=== PATIENT | female | born 2000 | race Caucasian/White ===

== ENCOUNTER 2023-03-01 21:29 | Emergency (ER) | payer BC ==
--- NOTE | 2023-03-01 21:35 | ERPHSYRPT ---
- History of Present Illness Time Seen by Provider: 03/01/23 21:35 Source: patient Exam Limitations: no limitations Physician History: C/o sore throat x 5 days. Endorses rhinorrhea, nasal congestion and cough, productive/dry. + fever. No N/V, not tolerating diet. + hoarse voice Timing/Duration: day(s) (5) Cough Quality/Degree: moderate, dry cough Possible Cause: occasional episodes Modifying Factors: Improves With: nothing. Worsens With: coughing Associated Symptoms: fever, chills, cough, nasal congestion, nasal drainage, No chest pain/soreness, No shortness of breath Allergies/Adverse Reactions: No Known Drug Allergies Allergy (Unverified 03/01/23 21:35) - Review of Systems Constitutional: Fever, Chills Eyes: No Symptoms Ears, Nose, & Throat: Nose Congestion, Nose Discharge, Throat Pain, Throat Swelling, Hoarse, Painful Swallowing, No Ear Pain Respiratory: Cough, No Dyspnea, No Dyspnea on Exertion (FARIAS), No Wheezing Cardiac: No Symptoms Abdominal/Gastrointestinal: Appetite Changes, No Abdominal Pain, No Nausea, No Vomiting, No Diarrhea Genitourinary Symptoms: No Symptoms Musculoskeletal: No Symptoms Skin: No Symptoms Neurological: No Symptoms Psychological: No Symptoms Endocrine: No Symptoms Hematologic/Lymphatic: No Symptoms Immunological/Allergic: No Symptoms All Other Systems: Reviewed and Negative - Nursing Vital Signs Nursing Vital Signs: Initial Vital Signs Temperature 99.5 F 03/01/23 21:36 Pulse Rate 119 H 03/01/23 21:36 Respiratory Rate 20 03/01/23 21:36 Blood Pressure 145/79 03/01/23 21:36 O2 Sat by Pulse Oximetry 100 03/01/23 21:36 Pain Scale Pain Intensity 7 - Physical Exam General Appearance: mild distress Eye Exam: eyes nml inspection Ears, Nose, Throat Exam: TMs normal, dry mucous membranes, pharyngeal erythema, other (right tonsil enlarged pusing on uvula causing leftward deviation), No tonsillar exudate Neck Exam: normal inspection, full range of motion, lymphadenopathy (right submandibular) Respiratory Exam: normal breath sounds, lungs clear, airway intact, No respiratory distress Cardiovascular Exam: normal heart sounds, tachycardia, capillary refill <2 sec, No edema Gastrointestinal/Abdomen Exam: soft, normal bowel sounds, No tenderness Extremity Exam: normal inspection, No swelling, No tenderness Neurologic Exam: alert, oriented x 3, cooperative Skin Exam: normal color, warm, dry SpO2 Interpretation: normal O2 Delivery: Room Air - Course Nursing assessment & vital signs reviewed: Yes - CT Exams Soft Tissue Neck CT Interpretation: Tele-radiologist Report, Other (right tonsilitis no kodak abscess) Ordered Tests: Active Orders 24 hr Category Date Time Status IV Insertion STAT Care 03/01/23 21:47 Completed IV Insertion STAT Care 03/01/23 21:52 Completed Pulse Oximetry (ED) STAT Care 03/01/23 21:52 Completed NECK WITH CONTRAST [CT] Stat Exams 03/01/23 21:48 Completed BLOOD CULTURE Stat Lab 03/01/23 22:15 Received CBC W DIFF Stat Lab 03/01/23 22:10 Completed CMP Stat Lab 03/01/23 22:10 Completed ESR [Erythrocyte Sedimentation Rate] Stat Lab 03/01/23 22:10 Completed Lactic Acid Stat Lab 03/01/23 22:05 Completed MONO SCREEN Stat Lab 03/01/23 22:10 Completed Medication Summary Discontinued Medications Generic Name Dose Route Start Last Admin Trade Name Alfonzo PRN Reason Stop Dose Admin Acetaminophen 975 mg 03/01/23 21:47 03/01/23 21:55 Acetaminophen 325 Mg Tablet PO 03/01/23 21:48 975 mg STAT ONE Administration Acetaminophen Confirm 03/01/23 21:53 Acetaminophen 325 Mg Tablet Administered 03/01/23 21:54 Dose 975 mg .ROUTE .STK-MED ONE Ampicillin Sodium/Sulbactam Sodium Confirm 03/01/23 23:28 Ampicillin /Sulbactam 3 G/Vial Administered 03/01/23 23:29 Dose 3 g .ROUTE .STK-MED ONE Dexamethasone Sodium Phosphate 8 mg 03/01/23 23:26 03/01/23 23:35 Dexamethasone Sod Phosphate 4 Mg/Ml Ml IV 03/01/23 23:27 8 mg STAT ONE Administration Dexamethasone Sodium Phosphate Confirm 03/01/23 23:28 Dexamethasone Sod Phosphate 4 Mg/Ml Ml Administered 03/01/23 23:29 Dose 8 mg .ROUTE .STK-MED ONE Sodium Chloride 1,000 mls @ 999 mls/hr 03/01/23 21:47 03/01/23 23:47 Sodium Chloride 0.9% 1000 Ml IV 03/01/23 22:47 Infused .Q1H1M STA Infusion Sodium Chloride Confirm 03/01/23 21:53 Sodium Chloride 0.9% 1000 Ml Administered 03/01/23 21:54 Dose 1,000 mls @ ud .ROUTE .[facility] ONE Ampicillin Sodium/Sulbactam 100 mls @ 300 mls/hr 03/01/23 23:23 03/01/23 23:35 Sodium 3 g/ Sodium Chloride IV 03/01/23 23:42 300 mls/hr STAT ONE Administration Sodium Chloride Confirm 03/01/23 23:29 Sodium Chloride 0.9% Administered 03/01/23 23:30 Dose 100 mls @ ud .ROUTE .[facility] ONE Lab/Rad Data: Laboratory Result Diagrams 03/01/23 22:10 03/01/23 22:10 Laboratory Results 03/01/23 03/01/23 03/01/23 Range/Units 22:10 22:10 22:10 WBC (4.0-10.5) x10^3/uL RBC (4.1-5.4) x10^6/uL Hgb (12.0-16.0) g/dL Hct (35-47) % MCV (78-100) fL MCH (26-32) pg MCHC (32-36) g/dL RDW (11.5-14.0) % Plt Count (150-450) x10^3/uL MPV (7.5-11.0) fL Gran % (36.0-66.0) % Immature Gran % (Auto) (0.00-0.4) % Nucleat RBC Rel Count (0.00-0.1) % Eos # (Auto) (0-0.5) x10^3/uL Immature Gran # (Auto) (0.00-0.03) x10^3u/L Absolute Lymphs (auto) (1.0-4.6) x10^3/uL Absolute Monos (auto) (0.0-1.3) x10^3/uL Absolute Nucleated RBC (0.00-0.01) x10^3u/L Lymphocytes % (24.0-44.0) % Monocytes % (0.0-12.0) % Eosinophils % (0.00-5.0) % Basophils % (0.0-0.4) % Absolute Granulocytes (1.4-6.9) x10^3/uL Basophils # (0-0.4) x10^3/uL ESR 45 H (0-20) mm/hr Sodium 137 (137-145) mmol/L Potassium 4.4 (3.5-5.1) mmol/L Chloride 100 (98-107) mmol/L Carbon Dioxide 30 (22-30) mmol/L Anion Gap 11.7 (5-15) MEQ/L BUN 4 L (7-17) mg/dL Creatinine 0.63 (0.52-1.04) mg/dL Estimated GFR > 60.0 ML/MIN Glucose 97 (74-106) mg/dL Lactic Acid (0.4-2.0) Calcium 9.1 (8.4-10.2) mg/dL Total Bilirubin 0.60 (0.2-1.3) mg/dL AST 20 (14-36) U/L ALT 18 (0-35) U/L Alkaline Phosphatase 99 (38-126) U/L Serum Total Protein 7.7 (6.3-8.2) g/dL Albumin 4.0 (3.5-5.0) g/dL Monoscreen NEGATIVE (NEGATIVE) Influenza Type A Ag (NEGATIVE) Influenza Type B Ag (NEGATIVE) RSV (PCR) (NEGATIVE) SARS-CoV-2 (PCR) (NEGATIVE) Group A Strep Antibody (NEGATIVE) 03/01/23 03/01/23 03/01/23 Range/Units 22:10 22:10 22:05 WBC 18.3 H (4.0-10.5) x10^3/uL RBC 4.14 (4.1-5.4) x10^6/uL Hgb 12.5 (12.0-16.0) g/dL Hct 38.0 (35-47) % MCV 91.8 (78-100) fL MCH 30.2 (26-32) pg MCHC 32.9 (32-36) g/dL RDW 11.4 L (11.5-14.0) % Plt Count 315 (150-450) x10^3/uL MPV 9.7 (7.5-11.0) fL Gran % 71.0 H (36.0-66.0) % Immature Gran % (Auto) 0.7 H (0.00-0.4) % Nucleat RBC Rel Count 0.0 (0.00-0.1) % Eos # (Auto) 0.02 (0-0.5) x10^3/uL Immature Gran # (Auto) 0.12 H (0.00-0.03) x10^3u/L Absolute Lymphs (auto) 3.03 (1.0-4.6) x10^3/uL Absolute Monos (auto) 2.07 H (0.0-1.3) x10^3/uL Absolute Nucleated RBC 0.00 (0.00-0.01) x10^3u/L Lymphocytes % 16.5 L (24.0-44.0) % Monocytes % 11.3 (0.0-12.0) % Eosinophils % 0.1 (0.00-5.0) % Basophils % 0.4 (0.0-0.4) % Absolute Granulocytes 13.01 H (1.4-6.9) x10^3/uL Basophils # 0.07 (0-0.4) x10^3/uL ESR (0-20) mm/hr Sodium (137-145) mmol/L Potassium (3.5-5.1) mmol/L Chloride (98-107) mmol/L Carbon Dioxide (22-30) mmol/L Anion Gap (5-15) MEQ/L BUN (7-17) mg/dL Creatinine (0.52-1.04) mg/dL Estimated GFR ML/MIN Glucose (74-106) mg/dL Lactic Acid 1.1 (0.4-2.0) Calcium (8.4-10.2) mg/dL Total Bilirubin (0.2-1.3) mg/dL AST (14-36) U/L ALT (0-35) U/L Alkaline Phosphatase (38-126) U/L Serum Total Protein (6.3-8.2) g/dL Albumin (3.5-5.0) g/dL Monoscreen (NEGATIVE) Influenza Type A Ag NEGATIVE (NEGATIVE) Influenza Type B Ag NEGATIVE (NEGATIVE) RSV (PCR) NEGATIVE (NEGATIVE) SARS-CoV-2 (PCR) NEGATIVE (NEGATIVE) Group A Strep Antibody NOT DETECTED (NEGATIVE) - Progress Progress: unchanged Air Movement: good Progress Note: 03/01/23 23:40 WBC 18, strep, mono, flu, rsv, covid neg Patient given Unasyn and Decadron due to concern for peritonsillar abscess. CT showed right sided tonsilitis w/ reactive LAD, no kodak abscess. Blood Culture(s) Obtained: Yes Antibiotics given: Yes Counseled pt/family regarding: lab results, diagnosis, need for follow-up, rad results Medical Desision Making - Diagnostic Testing Diagnostic test were ordered, analyzed, and reviewed by me: Yes Radiological Interpretation: Reviewed by me, Teleradiologist Report - Risk of complications The pt has a mod risk of morbidity or mortality based on: Need for prescription drug management - Departure Departure Disposition: Home Clinical Impression: Acute erythematous tonsillitis Condition: Stable Critical Care Time: No Referrals: MELI CHESTER [Primary Care Provider] - Follow up/PCP as directed Instructions: Viral Pharyngitis (DC) Prescriptions: predniSONE [Prednisone] 50 mg PO DAILY 4 Days #4 tablet
[2023-03-01] MEDS ORDERED: TYLENOL 325 MG PO ONE (21:47)
[2023-03-01] MEDS ORDERED: Sodium Chloride 0.9% 1000 ML 1,000 ML IV STA (21:47)
[2023-03-01] MEDS ORDERED: Sodium Chloride 0.9% 1000 ML 1,000 ML ONE (21:53)
[2023-03-01] MEDS ORDERED: TYLENOL 325 MG ONE (21:53)
[2023-03-01 22:20] LABS: Absolute Neutrophil Ct (ANC) 13.01 x10^3/uL (1.4-6.9); BASOPHIL % 0.4 % (0.0-0.4); Basophil (Absolute #) 0.07 x10^3/uL (0-0.4); Eosinophil % 0.1 % (0.00-5.0); Eosinophil (Absolute #) 0.02 x10^3/uL (0-0.5); Hemoglobin 12.5 g/dL (12.0-16.0); IMMATURE GRAN # 0.12 x10^3u/L (0.00-0.03); IMMATURE GRAN % 0.7 % (0.00-0.4); Lymphocyte (Absolute #) 3.03 x10^3/uL (1.0-4.6); Lymphocytes % 16.5 % (24.0-44.0); Mean Cell Volume 91.8 fL (78-100); Mean Corpuscular Hemoglobin 30.2 pg (26-32); Mean Corpuscular Hgb Concent. 32.9 g/dL (32-36); Mean Platelet Volume 9.7 fL (7.5-11.0); Monocyte (Absolute #) 2.07 x10^3/uL (0.0-1.3); Monocytes % 11.3 % (0.0-12.0); Platelet Count 315 x10^3/uL (150-450); Red Blood Count 4.14 x10^6/uL (4.1-5.4); Red Cell Distribution Width 11.4 % (11.5-14.0); White Blood Count 18.3 x10^3/uL (4.0-10.5)
[2023-03-01 22:37] LABS: ALKALINE PHOSPHATASE 99 U/L (38-126); ANION GAP 11.7 MEQ/L (5-15); BLOOD UREA NITROGEN 4 mg/dL (7-17); CHLORIDE 100 mmol/L (98-107); Calcium 9.1 mg/dL (8.4-10.2); Carbon Dioxide 30 mmol/L (22-30); Creatinine 1 0.63 mg/dL (0.52-1.04); EST GLOMERULAR FILTRATION RATE > 60.0 ML/MIN; Glucose 97 mg/dL (74-106); Potassium 4.4 mmol/L (3.5-5.1); SGOT/AST 20 U/L (14-36); SGPT/ALT 18 U/L (0-35); SODIUM 137 mmol/L (137-145); Total Protein 7.7 g/dL (6.3-8.2)
[2023-03-01 22:48] LABS: Group A Strep NOT DETECTED (NEGATIVE)
[2023-03-01 23:02] LABS: INFLUENZA A NEGATIVE (NEGATIVE); INFLUENZA B NEGATIVE (NEGATIVE); RESPIRATORY SYNCTIAL VIRUS NEGATIVE (NEGATIVE); SARS-CoV-2 Xpert Express NEGATIVE (NEGATIVE)
[2023-03-01] MEDS ORDERED: Unasyn 3 GM Vial*** 3 G in Sodium Chloride 0.9% 100 ML IV ONE (23:23)
[2023-03-01] MEDS ORDERED: Decadron 4 MG INJ IV ONE (23:26)
[2023-03-01] MEDS ORDERED: Decadron 4 MG INJ ONE (23:28)
[2023-03-01] MEDS ORDERED: Unasyn 3 GM Vial ONE (23:28)
[2023-03-01] MEDS ORDERED: Sodium Chloride 0.9% 100 ML ONE (23:29)
--- NOTE | 2023-03-01 23:31 | XRAY ---
CLINICAL HISTORY:tonsil pain, swelling COMPARISON:X-ray neck; TECHNIQUES:CT scan of the neck was performed with the administration of intravenous contrast. Sagittal and coronal reconstructions were obtained. 60cc Isovue was administered for post-contrast images; FINDINGS: There is evidence of enlargement of right tonsil, measuring 21 mm in maximum transverse dimension with hypoenhancement, with resultant mild narrowing of the oropharyngeal airway. No kodak abscess seen at the present study. Mild parapharyngeal fat stranding noted. Multiple right submandibular and upper jugular nodes noted with surrounding fat stranding and minimal perinodal fluid in submandibular region. The largest right upper jugular node measures 20 x 13 mm. Few subcentimetric left submandibular and upper jugular nodes also noted. Normal CT appearance of the infrahyoid deep neck spaces. Normal CT appearance of the larynx, namely the supraglottic, glottic and infra, glottic spaces. Normal CT appearance of the sublingual, submandibular and parotid salivary glands. The base of the tongue, the uvula, the epiglottis, the vocal cords, the upper trachea, the upper oesophagus are unremarkable. The thyroid gland shows no definite abnormality. The visualized structures of the posterior fossa show no definite abnormality. IMPRESSION: Acute right-sided tonsillitis with reactive Ipsilateral submandibular and upper jugular adenopathy with minimal fluid in right submandibular region. No kodak abscess seen at present stud. Electronically Signed by: Aramis Artis MD. (03/01/2023 22:24:53 [employer])
[2023-03-02 00:18] VITALS: BP 120/64; PULSE 105; O2SAT 99
== END 2023-03-02 00:20 | disposition home or self-care (01) ==
LOC: ED 21:29
DX: J03.90 Acute tonsillitis, unspecified (principal); R09.81 Nasal congestion; R05.9 Cough, unspecified; R50.9 Fever, unspecified; Z79.52 Long term (current) use of systemic steroids
CPT/HCPCS: 0241U; 36000; 36415; 70491; 80053; 83605; 85025; 85652; 86308; 87040; 87651; 94760; 96360; 96365; 96374; 99284; J0295; J1100; A9270-GY